=== PATIENT | female | born 1950 | race Caucasian/White ===

== ENCOUNTER 2017-05-27 08:48 | Emergency (ER) | payer MEDICARE, OTHER ==
[~2017-05-27] VITALS: Ht 167.6 cm; Wt 67.3 kg
[~2017-05-27 08:48] MED LIST: ADVIL200 MG; AMOX TR-K CLV 81 TAB; ANEXSIA 5/325 M1 TAB; ASPIRIN81 M1 PO; AUGMENTIN 875-11 TAB PO; COMPOUNDED MED; COMPOUNDED MED PO; COMPOUNDED MED VG; COQ 10 PO; DIAZEPAM TOP; DIAZEPAM2 M2 PO; DIAZEPAM5 M2 PO; FLAGYL500 MG; FLONASE16 GM; FOLGARD TABLET1 EAC1 PO; GABAPENTIN100 M1 PO; GABAPENTIN25 GM TOP; H; HYDROCODON-ACE1 EA16 PO; IBUPROFEN200 M2 PO; KETAMINE TOP; LEVAQUIN500 MG; LISINOPRIL2.5 M1 PO; MAGNESIUM30 M1; MULTIVITAMIN1 CAP; NASACORT10.8 M1 NS; NORCO 5/325 TAB1 TAB PO; PREDNISONE20 MG PO; PREVACID15 MG; VALIUM5 M1 PO; VALIUM5 MG; VALIUM5 MG PO; VITAMIN B-125000 MC2 SL; VITAMIN D32000 UNI2 PO; VIVELLE DO; VIVELLE-DOT1 EAC1 TD; VIVELLE1 PATCH.BW; ZYFLAMEND PO; [UNRECOGNIZED DRUG - OTHER]; [UNRECOGNIZED DRUG - OTHER]
[2017-05-27] MEDS ORDERED: COMPOUNDED MED TP ×3 (09:06→09:09)
[2017-05-27] MEDS ORDERED: COMPOUNDED MED VG (09:08)
[2017-05-27] MEDS ORDERED: NASACORT10.8 M1 (09:09)
[2017-05-27 09:19] LABS: BASO % 0.6 % (0-2); BASO ABSOLUTE COUNT 0.1 tho/cmm (0.0-0.2); EOS % 1.2 % (0-7); EOSINOPHIL ABSOLUTE COUNT 0.1 tho/cmm (0.0-0.7); HCT-HEMATOCRIT 44.9 % (34.0-49.0); HGB-HEMOGLOBIN 15.3 gm/dl (12.0-15.5); IMMATURE GRANULOCYTES ABSOLUTE 0.02 tho/cmm (0-0.03); IMMATURE GRANULOCYTES PERCENT 0.2 % (0-0.3); LYMPH % 14.6 % (20-45); LYMPH ABSOLUTE COUNT 1.4 tho/cmm (0.8-4.5); MCH (MEAN CORPUSCULAR HGB) 30.4 pg (28.0-32.0); MCHC MEAN CORPUSCULAR HGB CONC 34.1 % (32.0-36.0); MCV (MEAN CELL VOLUME) 89.3 fl (82.0-96.0); MEAN PLATELET VOLUME 13.2 cmc (9.4-12.4); MONO % 6.4 % (0-12); MONOCYTE ABSOLUTE COUNT 0.6 tho/cmm (0.0-1.2); NEUTROPHIL ABSOLUTE COUNT 7.3 tho/cmm (1.6-8.0); NEUTROPHIL-AUTOMATED 7.3 tho/cmm (1.6-8.0); PLATELET COUNT 187 tho/cmm (150-450); RED BLOOD COUNT 5.03 mil/cmm (4.00-5.20); WHITE BLOOD COUNT 9.5 tho/cmm (4.0-10.0)
[2017-05-27 09:24] LABS: ALB/GLOB RATIO 0.9 (0.8-2.0); ALBUMIN 3.5 g/dl (3.5-5.0); ALKALINE PHOSPHATASE 81 U/L (33-138); ALT/SGPT 14 U/L (12-78); ANION GAP 11 mmol/L (0-20); AST/SGOT 34 U/L (10-40); BILIRUBIN,TOTAL 0.6 mg/dl (0-1.5); BLOOD UREA NITROGEN 15 mg/dl (6-24); CALCIUM 8.6 mg/dl (8.5-10.5); CARBON DIOXIDE-VENOUS 26 mmol/L (22-32); CHLORIDE 105 mmol/l (96-110); CREATININE 0.79 mg/dl (0.50-1.10); GLUCOSE 90 mg/dL (70-110); POTASSIUM 3.8 mmol/L (3.7-5.1); SODIUM 138 mmol/L (135-145); eGFR VALUE FOR BLACK >90 mL/Min
== END 2017-05-27 10:39 ==
LOC: EDMED 08:48
PROVIDERS: Emergency Medicine
DX: R07.89 Other chest pain (principal); I10 Essential (primary) hypertension; F32.9 Major depressive disorder, single episode, unspecified; F41.9 Anxiety disorder, unspecified; Z90.710 Acquired absence of both cervix and uterus; Z79.899 Other long term (current) drug therapy
CPT/HCPCS: J1885; J7030